=== PATIENT | female | born 1975 | race American Indian/Alaskan Native ===

== ENCOUNTER 2018-10-14 19:31 | Emergency (ER) | payer MEDICAID ==
[2018-10-14 19:31] VITALS: BMI 57.6
[2018-10-14] MEDS ORDERED: Iohexol 240 (50 ml) PO ONE (21:17)
--- NOTE | 2018-10-14 21:21 | ED PDOC ---
HPI: Abdomen Time Seen by Provider: 10/14/18 20:46 Chief Complaint (Nursing): Female Genitourinary Chief Complaint (Provider): abdominal pain History Per: Patient History/Exam Limitations: no limitations Onset/Duration Of Symptoms: Days (1) Current Symptoms Are (Timing): Still Present Location Of Pain/Discomfort: RLQ, LLQ, Suprapubic Quality Of Discomfort: Cramping Associated Symptoms: Diarrhea Additional Complaint(s): 43 y/o female presents for evaluation of lower abdominal pain x 1 day. Associated two episodes of watery diarrhea, with bright red blood mixed in. Denies fever, nausea/vomiting, chest pain, shortness of breath, palpitations, urinary symptoms, recent travel, sick contacts. Past Medical History Reviewed: Historical Data, Nursing Documentation, Vital Signs Vital Signs: Last Vital Signs Temp 99.1 F 10/14/18 19:56 Pulse 66 10/14/18 19:56 Resp 16 10/14/18 19:56 BP 115/74 10/14/18 19:56 Pulse Ox 100 10/14/18 19:56 - Medical History PMH: Deep Vein Thrombosis, Pulmonary Embolism (2x; on Pradaxa since 2014) Denies: HIV, Chronic Kidney Disease - Surgical History Surgical History: Endoscopy Other surgeries: gastric sleeve 2014 - Family History Family History: States: Unknown Family Hx - Immunization History Hx Tetanus Toxoid Vaccination: No Hx Influenza Vaccination: Yes Hx Pneumococcal Vaccination: No - Home Medications Home Medications: Ambulatory Orders Medication Instructions Recorded Clindamycin [Cleocin] 300 mg PO TID #30 cap 07/15/16 Dabigatran [Pradaxa] 150 mg PO BID 07/15/16 Ciprofloxacin HCl [Cipro] 500 mg PO BID #19 tab 10/15/18 Dicyclomine [Bentyl] 20 mg PO TID PRN #15 tab 10/15/18 metroNIDAZOLE [Flagyl] 500 mg PO TID #29 tab 10/15/18 - Allergies Allergies/Adverse Reactions: Allergies Allergy/AdvReac Type Severity Reaction Status Date / Time No Known Allergies Allergy Verified 10/14/18 19:56 Review of Systems ROS Statement: Except As Marked, All Systems Reviewed And Found Negative Gastrointestinal: Positive for: Abdominal Pain, Diarrhea, Hematochezia Physical Exam - Reviewed Nursing Documentation Reviewed: Yes Vital Signs Reviewed: Yes - Physical Exam Appears: Positive for: Well, Non-toxic, No Acute Distress Head Exam: Positive for: ATRAUMATIC, NORMAL INSPECTION, NORMOCEPHALIC Skin: Positive for: Normal Color Eye Exam: Positive for: Normal appearance ENT: Positive for: Normal ENT Inspection Cardiovascular/Chest: Positive for: Regular Rate, Rhythm Respiratory: Positive for: Normal Breath Sounds Gastrointestinal/Abdominal: Positive for: Bowel Sounds, Soft, Tenderness (diffuse lower abdominal tenderness). Negative for: Distended, Guarding, Rebound Back: Positive for: Normal Inspection Rectal: Positive for: Normal Exam Extremity: Positive for: Normal ROM Neurological/Psych: Positive for: Awake, Alert, Oriented (x3) - Laboratory Results Result Diagrams: 10/14/18 22:05 10/14/18 22:05 - ECG O2 Sat by Pulse Oximetry: 100 - Progress ED Course And Treament: -cbc -cmp -urinalysis -urine c&s -CT abd/pelvis -IV toradol CT SCAN OF THE ABDOMEN AND PELVIS WITH CONTRAST. CLINICAL HISTORY: Lower abdominal pain, bloody diarrhea. Comparison: 11/19/2013. TECHNIQUE: Multiple axial and coronal CT images were obtained through the abdomen and pelvis after administration of intravenous contrast material. COMMENTS: Diffuse sigmoid diverticulosis. Acute diverticulitis of the proximal and mid sigmoid colon without perforation or abscess formation. Mild diffuse thickening of the bladder, probably mild reactive cystitis. 5.3 cm left lateral uterine body fibroid. The liver is of uniform attenuation without mass or defect. There is no intra or extrahepatic biliary ductal dilatation. The spleen is normal. The gallbladder is within normal limits. The pancreas is of normal contour and attenuation characteristics. There is no evidence of adrenal mass. Both kidneys demonstrate prompt and equal nephrograms. The kidneys are normal in size, shape and configuration. There is no evidence of renal or ureteral mass. No renal or ureteral calculi are identified. There is no hydroureter or hydronephrosis. No evidence for appendicitis. There is no bowel wall thickening. No evidence for small or large bowel obstruction. There is no evidence of abdominal ascites or lymphadenopathy. There is no evidence of intrinsic or extrinsic bladder mass. There is no pelvic ascites or lymphadenopathy. Images of the lung bases show no evidence of pleural or parenchymal mass. There are no pleural effusions. The bony structures are free of lytic or blastic lesions. IMPRESSION: Diffuse sigmoid diverticulosis. Acute diverticulitis of the proximal and mid sigmoid colon without perforation or abscess formation. Mild diffuse thickening of the bladder, probably mild reactive cystitis. Left lateral uterine body fibroid. Thank you for your kind referral of this patient. On re-eval, patient states pain improved after Toradol given Patient educated on findings, discharged with rx Cipro, Flagyl (doses given in ED), and Bentyl Advised GI follow up Patient aware of fibroid, follows with [employer] Return precautions given Disposition - Clinical Impression Clinical Impression: Diverticulitis, Urinary tract infection, Uterine fibroid - Patient ED Disposition Is Patient to be Admitted: No Counseled Patient/Family Regarding: Studies Performed, Diagnosis, Need For Followup, Rx Given - Disposition Referrals: Jeremie Bey MD [Primary Care Provider] - Disposition Time: 02:30 Condition: IMPROVED Prescriptions: Ciprofloxacin HCl [Cipro] 500 mg PO BID #19 tab Dicyclomine [Bentyl] 20 mg PO TID PRN #15 tab PRN Reason: Pain, Mild (1-3) metroNIDAZOLE [Flagyl] 500 mg PO TID #29 tab Instructions: Diverticulitis, Urinary Tract Infections in Adults Forms: [facility] ([place])
[2018-10-14] MEDS ORDERED: Iohexol 240 (50 ml) ONE (22:00)
[2018-10-14 22:29] LABS: BASO % 0.3 % (0.0-2.0); EOS % 0.3 % (0.0-4.0); HEMOGLOBIN 12.5 g/dL (12.0-16.0); LYMPH # 1.5 K/uL (1.0-4.3); LYMPH % 13.4 % (20.0-40.0); MEAN CELL VOLUME 84.1 fl (81.0-99.0); MEAN CORPUSCULAR HEMOGLOBIN 26.6 pg (27.0-31.0); MEAN CORPUSCULAR HGB CONC 31.6 g/dL (33.0-37.0); MEAN PLATELET VOLUME 9.6 fl (7.2-11.7); MONO # 0.9 K/uL (0.0-0.8); MONO % 7.7 % (0.0-10.0); NEUT # 8.6 K/uL (1.8-7.0); NEUT % 78.3 % (50.0-75.0); RBC 4.68 Mil/uL (3.80-5.20); RED CELL DISTRIBUTION WIDTH 14.7 % (11.5-14.5)
[2018-10-14 22:40] LABS: ALB/GLOB RATIO 1.2 (1.0-2.1); ALBUMIN 3.9 g/dL (3.5-5.0); ALT/SGPT 22 U/L (9-52); AST/SGOT 30 U/L (14-36); BLOOD UREA NITROGEN 14 mg/dl (7-17); CALCIUM 9.3 mg/dL (8.4-10.2); GFR NON-AFRICAN AMERICAN > 60
[2018-10-14 22:46] LABS: SQUAMOUS EPITHIAL 15 /hpf (0-5); URINE BACTERIA RARE (<OCC); URINE BILIRUBIN NEGATIVE (NEGATIVE); URINE BLOOD SMALL (NEGATIVE); URINE CLARITY CLOUDY (Clear); URINE COLOR YELLOW (YELLOW); URINE GLUCOSE (UA) NEG (NEGATIVE); URINE LEUKOCYTE ESTERASE LARGE Leu/uL (Negative); URINE PROTEIN 100 mg/dL (NEGATIVE)
[2018-10-14] MEDS ORDERED: Iohexol 300 100 ML IJ ONE (23:26)
[2018-10-14] MEDS ORDERED: Sodium Chloride 0.9% 50 ML IV ONE (23:26)
[2018-10-15 03:10] VITALS: BP 106/52; PULSE 92; RESP 18; TEMP 98.9; O2SAT 97
--- NOTE | 2018-10-15 14:29 | CT ---
Date of service: 10/14/2018 PROCEDURE: CT Abdomen and Pelvis with contrast HISTORY: lower abd pain, bloody diarrhea COMPARISON: None. TECHNIQUE: Contrast dose: Radiation dose: Total exam DLP = 858.88 mGy-cm. This CT exam was performed using one or more of the following dose reduction techniques: Automated exposure control, adjustment of the mA and/or kV according to patient size, and/or use of iterative reconstruction technique. FINDINGS: LOWER THORAX: Unremarkable. LIVER: Unremarkable. No gross lesion or ductal dilatation. GALLBLADDER AND BILE DUCTS: Unremarkable. PANCREAS: Unremarkable. No gross lesion or ductal dilatation. SPLEEN: Unremarkable. ADRENALS: Unremarkable. No mass. KIDNEYS AND URETERS: Unremarkable. No hydronephrosis. No solid mass. VASCULATURE: Unremarkable. No aortic aneurysm. No aortic atherosclerotic calcification or mural plaque present. BOWEL: Sigmoid colon diverticulosis with pericolonic fat infiltration consistent with acute diverticulitis. No abscess or perforation. APPENDIX: Normal appendix. PERITONEUM: Unremarkable. No free fluid. No free air. LYMPH NODES: Unremarkable. No enlarged lymph nodes. BLADDER: Unremarkable. REPRODUCTIVE: Leiomyomatous uterus. BONES: No acute fracture. OTHER FINDINGS: None. IMPRESSION: Sigmoid colon diverticulosis with pericolonic fat infiltration consistent with acute diverticulitis. No abscess or perforation.Leiomyomatous uterus.
== END 2018-10-15 03:20 | disposition home or self-care (01) ==
LOC: H.ER 19:31
DX: K57.92 Diverticulitis of intestine, part unspecified, without perforation or abscess without bleeding (principal); N39.0 Urinary tract infection, site not specified; D25.9 Leiomyoma of uterus, unspecified; Z79.01 Long term (current) use of anticoagulants; Z79.899 Other long term (current) drug therapy; Z86.711 Personal history of pulmonary embolism; Z86.718 Personal history of other venous thrombosis and embolism
CPT/HCPCS: 74177; 80053; 81003; 81025; 85025; 87086; 96374; 99284; G0328; J1885; Q9966; Q9967